=== PATIENT | male | born 1985 | race Caucasian/White ===

== ENCOUNTER 2023-09-23 08:38 | Emergency (ER) | payer MEDICAID, OTHER ==
[~2023-09-23] VITALS: Ht 162.6 cm; Wt 72.1 kg
[2023-09-23 08:54] VITALS: BP 108/69; PULSE 87; RESP 16; TEMP 98.5; O2SAT 99
[2023-09-23] MEDS: FUROSEMIDE 40 MG/4 ML VIAL IVP ONE (09:44)
[2023-09-23] MEDS ORDERED: FURO-570 PO (11:34)
[2023-09-23] MEDS ORDERED: BENZONATATE 100 MG CAPLF PO ONE (11:41)
[2023-09-23] MEDS: BENZONATATE 100 MG CAPLF PO ONE (11:46)
[2023-09-23 11:48] VITALS: BP 106/61; PULSE 81; RESP 18; TEMP 98.5; O2SAT 99
== END 2023-09-23 11:50 | disposition home or self-care (01) ==
LOC: MED 08:38
DX: R18.8 Other ascites (principal); Z79.899 Other long term (current) drug therapy
CPT/HCPCS: 49083; 96374; 99285; J1940